=== PATIENT | female | born 1955 | race African-American/Black ===

== ENCOUNTER 2019-06-19 02:42 | Inpatient (IN) ==
[2019-06-19] MEDS ORDERED: ONDANSETRON 4 MG/2 ML VIAL IV STA (03:18)
[2019-06-19] MEDS ORDERED: KETOROLAC 30 MG/1 ML VIAL IV STA (03:18)
[2019-06-19] MEDS ORDERED: PIPERACILLIN/TAZOBACTAM 3,375 MG in SODIUM CHLORIDE 0.9% 100 ML IV STA (03:19)
[2019-06-19] MEDS ORDERED: HYDROmorphone 2 MG/1 ML VIAL IV STA (03:19)
[2019-06-19] MEDS ORDERED: SODIUM CHLORIDE 0.9% 1,000 ML IV SCH (03:30)
[2019-06-19 03:34] LABS: Basophils % 0.3 % (0.0-0.8); Eosinophils % 0.4 % (0.00-10.9); Hematocrit 33.8 VOL% (35.7-47.0); Hemoglobin 10.5 GM/DL (12.0-16.0); Immature Granulocytes % 0.1 %; Immature Granulocytes Absolute 0.01 #; Lymphocytes # 0.9 10*3/uL (1.4-4.0); Mean Corpuscular HGB Conc 31.1 GM/DL (32-36); Mean Corpuscular Volume 98.8 FL (87-102); Mean Platelet Volume 11.2 FL (9.6-12.0); Monocytes % 8.8 % (1.7-12.7); Neutrophils % 76.4 % (38.7-73.9); Platelet Count 221 T/CUMM (130-400); Red Blood Count 3.42 MC/CUMM (3.8-5.5); White Blood Count 6.7 T/CUMM (4-12)
[2019-06-19 04:22] LABS: Alanine Aminotransferase 16 U/L (13-56); Albumin 2.9 G/DL (3.4-5.0); Alkaline Phosphatase 110 U/L (45-117); Aspartate Amino Transferase 19 U/L (0-37); Bilirubin,Total < 0.39 MG/DL (0.2-1.0); Blood Urea Nitrogen 12 MG/DL (7-18); Calcium 9.8 MG/DL (8.5-10.1); Estimated Glom Filtration Rate 94 ML/MIN; Glucose 108 MG/DL (74-106); Osmolality,Calculated 275.7 MOS/KG (273-304); Total Protein 7.7 G/DL (6.4-8.3)
[2019-06-19] MEDS ORDERED: HYDROmorphone 2 MG/1 ML VIAL IV PRN (04:22)
[2019-06-19] MEDS ORDERED: GLUCAGON 1 MG VIAL IM PRN (04:22)
[2019-06-19] MEDS ORDERED: ACETAMINOPHEN 325 MG TABLET PO PRN (04:22)
[2019-06-19] MEDS ORDERED: DEXTROSE 50% 25 GM/50 ML SYRINGE IV PRN (04:22)
[2019-06-19] MEDS ORDERED: ONDANSETRON 4 MG/2 ML VIAL IV PRN (04:22)
[2019-06-19] MEDS ORDERED: INSULIN REGULAR 100 UNIT/ML SUBCUT SCH (06:00)
[2019-06-19] MEDS: ALBUTEROL/IPRATROPIUM 3 ML NEB RESP TX SCH ×3 (07:05→19:55)
[2019-06-19] MEDS: LINEZOLID INJ 600 MG in PREMIX 1 EACH IV SCH ×2 (09:28→20:56)
[2019-06-19] MEDS: PANTOPRAZOLE 40 MG TABLET PO SCH ×2 (09:29→09:35)
[2019-06-19] MEDS: INSULIN REGULAR 100 UNIT/ML SUBCUT SCH ×3 (11:51→20:45)
[2019-06-19] MEDS: PIPERACILLIN/TAZOBACTAM 3,375 MG in SODIUM CHLORIDE 0.9% 100 ML IV SCH ×2 (13:13→20:57)
[2019-06-19] MEDS: ATORVASTATIN 20 MG TABLET PO SCH (20:56)
[2019-06-19] MEDS: GABAPENTIN 300 MG CAPSULE PO SCH (20:56)
[2019-06-20] MEDS: ALBUTEROL/IPRATROPIUM 3 ML NEB RESP TX SCH ×4 (01:00→19:28)
[2019-06-20] MEDS: PIPERACILLIN/TAZOBACTAM 3,375 MG in SODIUM CHLORIDE 0.9% 100 ML IV SCH ×3 (05:17→23:45)
[2019-06-20 06:00] LABS: Basophils % 0.4 % (0.0-0.8); Eosinophils % 0.6 % (0.00-10.9); Hematocrit 27.5 VOL% (35.7-47.0); Hemoglobin 8.3 GM/DL (12.0-16.0); Immature Granulocytes % 0.2 %; Immature Granulocytes Absolute 0.01 #; Lymphocytes # 0.6 10*3/uL (1.4-4.0); Lymphocytes % 11.7 % (21.3-54.2); Mean Corpuscular HGB Conc 30.2 GM/DL (32-36); Mean Corpuscular Volume 98.9 FL (87-102); Mean Platelet Volume 10.5 FL (9.6-12.0); Monocytes % 11.9 % (1.7-12.7); Neutrophils % 75.2 % (38.7-73.9); Platelet Count 238 T/CUMM (130-400); Red Blood Count 2.78 MC/CUMM (3.8-5.5); Red Cell Distribution Width 14.9 % (9.3-17.3); White Blood Count 5.3 T/CUMM (4-12)
[2019-06-20 06:30] LABS: Alanine Aminotransferase 16 U/L (13-56); Albumin 2.8 G/DL (3.4-5.0); Alkaline Phosphatase 102 U/L (45-117); Aspartate Amino Transferase 17 U/L (0-37); Bilirubin,Total < 0.39 MG/DL (0.2-1.0); Blood Urea Nitrogen 10 MG/DL (7-18); Calcium 9.5 MG/DL (8.5-10.1); Estimated Glom Filtration Rate 77 ML/MIN; Glucose 119 MG/DL (74-106); Osmolality,Calculated 274.7 MOS/KG (273-304); Risk Ratio 1.73; Total Protein 7.3 G/DL (6.4-8.3); VLDL CHOLESTEROL 8.4 MG/DL
[2019-06-20] MEDS: INSULIN REGULAR 100 UNIT/ML SUBCUT SCH ×4 (07:54→21:15)
[2019-06-20] MEDS: LINEZOLID INJ 600 MG in PREMIX 1 EACH IV SCH ×2 (09:04→21:14)
[2019-06-20] MEDS: PANTOPRAZOLE 40 MG TABLET PO SCH (10:05)
[2019-06-20] MEDS: GABAPENTIN 300 MG CAPSULE PO SCH ×3 (10:05→21:15)
[2019-06-20] MEDS: ASPIRIN EC 81 MG TABLET PO SCH (10:05)
[2019-06-20] MEDS: cilostazoL 100 MG TABLET PO SCH (10:05)
[2019-06-20 11:40] LABS: Hematocrit 28.6 VOL% (35.7-47.0); Hemoglobin 8.5 GM/DL (12.0-16.0)
[2019-06-20 13:07] LABS: PT Patient Result 10.6 SECS (9.6-12.2)
[2019-06-20 20:49] LABS: Hematocrit 31.1 VOL% (35.7-47.0)
[2019-06-20] MEDS: ATORVASTATIN 20 MG TABLET PO SCH (21:15)
[2019-06-21] MEDS: ALBUTEROL/IPRATROPIUM 3 ML NEB RESP TX SCH ×4 (01:00→19:10)
[2019-06-21 05:29] LABS: Basophils % 0.7 % (0.0-0.8); Eosinophils # 0.1 10*3/uL (0.0-0.87); Eosinophils % 1.3 % (0.00-10.9); Hematocrit 27.2 VOL% (35.7-47.0); Hemoglobin 8.1 GM/DL (12.0-16.0); Immature Granulocytes % 0.4 %; Immature Granulocytes Absolute 0.02 #; Lymphocytes # 0.7 10*3/uL (1.4-4.0); Mean Corpuscular HGB Conc 29.8 GM/DL (32-36); Mean Corpuscular Volume 99.6 FL (87-102); Mean Platelet Volume 10.6 FL (9.6-12.0); Monocytes % 14.1 % (1.7-12.7); Neutrophils % 68.5 % (38.7-73.9); Platelet Count 248 T/CUMM (130-400); Red Blood Count 2.73 MC/CUMM (3.8-5.5); White Blood Count 4.5 T/CUMM (4-12)
[2019-06-21 07:28] LABS: Calcium 9.2 MG/DL (8.5-10.1); Osmolality,Calculated 278.4 MOS/KG (273-304)
[2019-06-21 08:04] LABS: Hematocrit 30.6 VOL% (35.7-47.0); Hemoglobin 9.1 GM/DL (12.0-16.0)
[2019-06-21] MEDS ORDERED: MIDAZOLAM 2 MG/2 ML VIAL IV ONE (08:16)
[2019-06-21] MEDS ORDERED: HEPARIN/NACL 0.9% 2 UNITS/ML 2,000 ML IV ONE (08:44)
[2019-06-21] MEDS: LINEZOLID INJ 600 MG in PREMIX 1 EACH IV SCH ×2 (08:50→20:54)
[2019-06-21] MEDS: PIPERACILLIN/TAZOBACTAM 3,375 MG in SODIUM CHLORIDE 0.9% 100 ML IV SCH ×2 (08:54→16:19)
[2019-06-21] MEDS: ASPIRIN EC 81 MG TABLET PO SCH (09:35)
[2019-06-21] MEDS: PANTOPRAZOLE 40 MG TABLET PO SCH (09:36)
[2019-06-21] MEDS: cilostazoL 100 MG TABLET PO SCH (09:36)
[2019-06-21] MEDS: GABAPENTIN 300 MG CAPSULE PO SCH ×3 (09:36→20:54)
[2019-06-21] MEDS ORDERED: MIDAZOLAM 2 MG/2 ML VIAL ONE (10:03)
[2019-06-21] MEDS ORDERED: HYDROmorphone 2 MG/1 ML VIAL ONE (10:03)
[2019-06-21] MEDS: ATORVASTATIN 20 MG TABLET PO SCH (20:54)
[2019-06-22] MEDS: PIPERACILLIN/TAZOBACTAM 3,375 MG in SODIUM CHLORIDE 0.9% 100 ML IV SCH ×3 (00:55→15:49)
[2019-06-22] MEDS: ALBUTEROL/IPRATROPIUM 3 ML NEB RESP TX SCH ×4 (01:10→19:25)
[2019-06-22] MEDS: INSULIN REGULAR 100 UNIT/ML SUBCUT SCH ×4 (04:52→16:57)
[2019-06-22 05:03] LABS: Basophils % 0.4 % (0.0-0.8); Eosinophils # 0.1 10*3/uL (0.0-0.87); Eosinophils % 1.2 % (0.00-10.9); Hematocrit 27.8 VOL% (35.7-47.0); Hemoglobin 8.3 GM/DL (12.0-16.0); Immature Granulocytes % 0.4 %; Immature Granulocytes Absolute 0.02 #; Lymphocytes # 0.7 10*3/uL (1.4-4.0); Lymphocytes % 15.1 % (21.3-54.2); Mean Corpuscular HGB Conc 29.9 GM/DL (32-36); Mean Corpuscular Volume 101.5 FL (87-102); Mean Platelet Volume 10.3 FL (9.6-12.0); Neutrophils % 70.9 % (38.7-73.9); Platelet Count 245 T/CUMM (130-400); Red Blood Count 2.74 MC/CUMM (3.8-5.5); Red Cell Distribution Width 15.1 % (9.3-17.3); White Blood Count 4.9 T/CUMM (4-12)
[2019-06-22 05:33] LABS: Calcium 9.5 MG/DL (8.5-10.1); Osmolality,Calculated 279.3 MOS/KG (273-304)
[2019-06-22] MEDS: LINEZOLID INJ 600 MG in PREMIX 1 EACH IV SCH ×2 (08:29→21:02)
[2019-06-22] MEDS: GABAPENTIN 300 MG CAPSULE PO SCH ×3 (08:31→21:02)
[2019-06-22] MEDS: cilostazoL 100 MG TABLET PO SCH (08:32)
[2019-06-22] MEDS: ASPIRIN EC 81 MG TABLET PO SCH (08:32)
[2019-06-22] MEDS: PANTOPRAZOLE 40 MG TABLET PO SCH (08:32)
[2019-06-22] MEDS: ATORVASTATIN 20 MG TABLET PO SCH (21:03)
[2019-06-23] MEDS: PIPERACILLIN/TAZOBACTAM 3,375 MG in SODIUM CHLORIDE 0.9% 100 ML IV SCH ×3 (01:07→15:32)
[2019-06-23] MEDS: ALBUTEROL/IPRATROPIUM 3 ML NEB RESP TX SCH ×4 (01:52→20:00)
[2019-06-23] MEDS: INSULIN REGULAR 100 UNIT/ML SUBCUT SCH ×4 (03:05→16:49)
[2019-06-23] MEDS: LINEZOLID INJ 600 MG in PREMIX 1 EACH IV SCH ×2 (08:19→20:19)
[2019-06-23] MEDS: PANTOPRAZOLE 40 MG TABLET PO SCH (08:20)
[2019-06-23] MEDS: cilostazoL 100 MG TABLET PO SCH (08:20)
[2019-06-23] MEDS: GABAPENTIN 300 MG CAPSULE PO SCH ×3 (08:20→20:16)
[2019-06-23] MEDS: ASPIRIN EC 81 MG TABLET PO SCH (08:20)
[2019-06-23] MEDS: ATORVASTATIN 20 MG TABLET PO SCH (20:16)
[2019-06-24] MEDS: ALBUTEROL/IPRATROPIUM 3 ML NEB RESP TX SCH ×4 (01:43→19:37)
[2019-06-24] MEDS: PIPERACILLIN/TAZOBACTAM 3,375 MG in SODIUM CHLORIDE 0.9% 100 ML IV SCH ×3 (03:13→23:44)
[2019-06-24] MEDS: INSULIN REGULAR 100 UNIT/ML SUBCUT SCH ×5 (04:04→20:42)
[2019-06-24] MEDS ORDERED: CLINDAMYCIN INJ 900 MG in PREMIX 1 EACH IV ONE (07:43)
[2019-06-24] MEDS: LINEZOLID INJ 600 MG in PREMIX 1 EACH IV SCH ×2 (09:20→21:21)
[2019-06-24] MEDS: ASPIRIN EC 81 MG TABLET PO SCH (10:30)
[2019-06-24] MEDS: GABAPENTIN 300 MG CAPSULE PO SCH ×3 (10:31→21:22)
[2019-06-24] MEDS: PANTOPRAZOLE 40 MG TABLET PO SCH (10:32)
[2019-06-24] MEDS: cilostazoL 100 MG TABLET PO SCH (10:32)
[2019-06-24] MEDS ORDERED: cloNIDine 0.1 MG TABLET PO PRN (12:35)
[2019-06-24] MEDS ORDERED: LACTATED RINGERS 1,000 ML IV SCH (13:30)
[2019-06-24] MEDS ORDERED: SEVOFLURANE 1 UNIT/15 MINUTE INH ONE (14:25)
[2019-06-24] MEDS ORDERED: LIDOCAINE 2% 5 ML VIAL ONE (14:25)
[2019-06-24] MEDS ORDERED: propofoL 200 MG/20 ML VIAL IV ONE (14:25)
[2019-06-24] MEDS ORDERED: PHENYLEPHRINE 1 MG/10 ML SYRINGE IV ONE (14:26)
[2019-06-24] MEDS ORDERED: fentaNYL 100 MCG/2 ML VIAL ONE (14:26)
[2019-06-24] MEDS ORDERED: MIDAZOLAM 2 MG/2 ML VIAL ONE (14:26)
[2019-06-24] MEDS ORDERED: ONDANSETRON 4 MG/2 ML VIAL ONE ×2 (14:26→14:33)
[2019-06-24] MEDS ORDERED: HYDROmorphone 2 MG/1 ML VIAL ONE (14:33)
[2019-06-24] MEDS ORDERED: ONDANSETRON 4 MG/2 ML VIAL IV PRN (14:37)
[2019-06-24] MEDS ORDERED: HYDROmorphone 2 MG/1 ML VIAL IV PRN (14:37)
[2019-06-24] MEDS: ATORVASTATIN 20 MG TABLET PO SCH (21:22)
[2019-06-25] MEDS: ALBUTEROL/IPRATROPIUM 3 ML NEB RESP TX SCH ×4 (00:21→20:13)
[2019-06-25] MEDS: PIPERACILLIN/TAZOBACTAM 3,375 MG in SODIUM CHLORIDE 0.9% 100 ML IV SCH ×3 (06:14→22:05)
[2019-06-25] MEDS: KETOROLAC 15 MG/1 ML VIAL IV SCH ×3 (08:19→19:59)
[2019-06-25] MEDS: HYDROmorphone 2 MG/1 ML VIAL IV SCH ×2 (08:20→09:55)
[2019-06-25] MEDS: INSULIN REGULAR 100 UNIT/ML SUBCUT SCH ×4 (08:21→21:20)
[2019-06-25] MEDS: cilostazoL 100 MG TABLET PO SCH (08:21)
[2019-06-25] MEDS: GABAPENTIN 300 MG CAPSULE PO SCH ×3 (08:21→19:59)
[2019-06-25] MEDS: ASPIRIN EC 81 MG TABLET PO SCH (08:21)
[2019-06-25] MEDS: PANTOPRAZOLE 40 MG TABLET PO SCH (08:21)
[2019-06-25] MEDS: LINEZOLID INJ 600 MG in PREMIX 1 EACH IV SCH ×2 (08:22→19:46)
[2019-06-25] MEDS ORDERED: HYDROmorphone 2 MG/1 ML VIAL IV PRN (09:54)
[2019-06-25] MEDS: ATORVASTATIN 20 MG TABLET PO SCH (19:59)
[2019-06-26] MEDS: ALBUTEROL/IPRATROPIUM 3 ML NEB RESP TX SCH ×4 (00:49→19:38)
[2019-06-26] MEDS: KETOROLAC 15 MG/1 ML VIAL IV SCH ×4 (02:35→21:00)
[2019-06-26] MEDS: PIPERACILLIN/TAZOBACTAM 3,375 MG in SODIUM CHLORIDE 0.9% 100 ML IV SCH (06:25)
[2019-06-26] MEDS: LINEZOLID INJ 600 MG in PREMIX 1 EACH IV SCH (08:17)
[2019-06-26] MEDS: PANTOPRAZOLE 40 MG TABLET PO SCH (08:18)
[2019-06-26] MEDS: GABAPENTIN 300 MG CAPSULE PO SCH ×3 (08:18→21:01)
[2019-06-26] MEDS: ASPIRIN EC 81 MG TABLET PO SCH (08:18)
[2019-06-26] MEDS: cilostazoL 100 MG TABLET PO SCH (08:18)
[2019-06-26] MEDS: INSULIN REGULAR 100 UNIT/ML SUBCUT SCH ×4 (08:44→21:00)
[2019-06-26] MEDS: LEVOFLOXACIN 500 MG TABLET PO SCH (10:39)
[2019-06-26 11:51] LABS: Hematocrit 26.9 VOL% (35.7-47.0)
[2019-06-26] MEDS ORDERED: METOPROLOL TARTRATE 5 MG/5 ML VIAL IV ONE (12:51)
[2019-06-26] MEDS ORDERED: SODIUM CHLORIDE 0.9% 1,000 ML IV SCH (14:00)
[2019-06-26] MEDS: CLINDAMYCIN 300 MG CAPSULE PO SCH ×2 (14:02→19:01)
[2019-06-26] MEDS ORDERED: SILVER NITRATE STICK 1 EACH TOP ONE (14:05)
[2019-06-26] MEDS ORDERED: METOPROLOL TARTRATE 25 MG TABLET PO SCH (21:00)
[2019-06-26] MEDS: ATORVASTATIN 20 MG TABLET PO SCH (21:01)
[2019-06-27] MEDS: ALBUTEROL/IPRATROPIUM 3 ML NEB RESP TX SCH ×2 (00:33→07:22)
[2019-06-27] MEDS: CLINDAMYCIN 300 MG CAPSULE PO SCH ×3 (00:47→11:48)
[2019-06-27] MEDS: KETOROLAC 15 MG/1 ML VIAL IV SCH ×2 (00:48→07:34)
[2019-06-27] MEDS: LEVOFLOXACIN 500 MG TABLET PO SCH (08:55)
[2019-06-27] MEDS: cilostazoL 100 MG TABLET PO SCH (08:55)
[2019-06-27] MEDS: ASPIRIN EC 81 MG TABLET PO SCH (08:56)
[2019-06-27] MEDS: GABAPENTIN 300 MG CAPSULE PO SCH (08:56)
[2019-06-27] MEDS: PANTOPRAZOLE 40 MG TABLET PO SCH (08:56)
[2019-06-27] MEDS ORDERED: METOPROLOL TARTRATE 25 MG TABLET PO SCH (09:00)
[2019-06-27] MEDS: INSULIN REGULAR 100 UNIT/ML SUBCUT SCH ×2 (09:01→11:50)
[2019-06-27 11:32] VITALS: BP 119/80
== END 2019-06-27 12:30 | DRG 239 ==
LOC: N.EDINP 02:42 → N.ED 02:42 → N.3E 03:46
PROVIDERS: ADMIT Surgery; ATTEND Surgery

== ENCOUNTER 2019-07-19 19:27 | Inpatient (IN) ==
[2019-07-19] MEDS ORDERED: SODIUM CHLORIDE 0.9% 1,000 ML IV STA (20:07)
[2019-07-19] MEDS ORDERED: ACETAMINOPHEN 500 MG TABLET PO STA (20:09)
[2019-07-19 20:37] LABS: Basophils # 0.1 10*3/uL (0.0-0.2); Basophils % 0.9 % (0.0-0.8); Eosinophils % 0.3 % (0.00-10.9); Hematocrit 37.5 VOL% (35.7-47.0); Hemoglobin 11.2 GM/DL (12.0-16.0); Immature Granulocytes % 1.8 %; Immature Granulocytes Absolute 0.19 #; Lymphocytes # 0.8 10*3/uL (1.4-4.0); Lymphocytes % 7.2 % (21.3-54.2); Mean Corpuscular HGB Conc 29.9 GM/DL (32-36); Mean Corpuscular Volume 98.9 FL (87-102); Mean Platelet Volume 11.1 FL (9.6-12.0); Neutrophils % 69.8 % (38.7-73.9); Platelet Count 189 T/CUMM (130-400); Red Blood Count 3.79 MC/CUMM (3.8-5.5); Red Cell Distribution Width 16.3 % (9.3-17.3); White Blood Count 10.5 T/CUMM (4-12)
[2019-07-19] MEDS ORDERED: PIPERACILLIN/TAZOBACTAM 3,375 MG in SODIUM CHLORIDE 0.9% 100 ML IV STA (20:40)
[2019-07-19 20:47] LABS: INR 1.1; PT Patient Result 11.9 SECS (9.8-11.9)
[2019-07-19 20:58] LABS: Alanine Aminotransferase 16 U/L (13-56); Albumin 2.2 G/DL (3.4-5.0); Alkaline Phosphatase 104 U/L (45-117); Aspartate Amino Transferase 14 U/L (0-37); Bilirubin,Total < 0.39 MG/DL (0.2-1.0); Blood Urea Nitrogen 34 MG/DL (7-18); Calcium 8.2 MG/DL (8.5-10.1); Estimated Glom Filtration Rate 37 ML/MIN; Glucose 169 MG/DL (74-106); Osmolality,Calculated 284.8 MOS/KG (273-304); Total Protein 5.2 G/DL (6.4-8.3)
[2019-07-19 21:27] LABS: Amorphous Crystals,Urine Occasional /HPF (Few); Apearance,Urine CLOUDY (Clear); Bacteria,Urine Occasional /HPF (Few); Bilirubin,Urine Negative (Negative); Blood, Urine Negative (Negative); Glucose,Urine (UA) Negative (Negative); Hyaline Casts,Urine 28 /LPF (0-3); Ketones,Urine 5 mg/dL (Negative); Nitrite,Urine Negative (Negative); Protein,Urine Negative; Squamous Epithelial Cell,Urine Occasional /HPF (0-10); Urine Color Amber (Yellow); Urine Specific Gravity 1.021 (1.001-1.035); Urine Urobilinogen < 2.0 EU/DL (0.2-1.0); WBC,Urine 1 /HPF (0-6)
[2019-07-19 22:31] LABS: Band Neutrophils 5 % (0-10); Eosinophils 1 % (0-10); Lymphocytes 13 % (20-55); Macrocytosis 1+; Metamyelocytes 1 %; Platelet Estimate Normal; Segmented Neutrophils 61 % (50-85); Total Cells Counted 100
[2019-07-19 22:32] LABS: Burr Cells 2+; Poikilocytosis 2+; Polychromasia Few; Reactive Lymphocytes 1+
[2019-07-20] MEDS ORDERED: NOREPINEPHRINE 8 MG in SODIUM CHLORIDE 0.9% 242 ML IV PRN (00:57)
[2019-07-20] MEDS ORDERED: POTASSIUM CHLORIDE RIDER 10 MEQ in PREMIX 1 EACH IV PRN (00:57)
[2019-07-20] MEDS ORDERED: ONDANSETRON 4 MG/2 ML VIAL IV PRN (00:57)
[2019-07-20] MEDS ORDERED: ALBUTEROL 2.5 MG/3 ML NEB RESP TX PRN (00:57)
[2019-07-20] MEDS ORDERED: MAGNESIUM SULF RIDER 4 GM in PREMIX 1 EACH IV PRN (00:57)
[2019-07-20] MEDS ORDERED: LEVOFLOXACIN INJ 750 MG in PREMIX 1 EACH IV SCH (01:00)
[2019-07-20] MEDS: SODIUM CHLORIDE 0.9% 1,000 ML IV SCH ×3 (01:57→21:56)
[2019-07-20] MEDS ORDERED: PIPERACILLIN/TAZOBACTAM 3,375 MG in SODIUM CHLORIDE 0.9% 100 ML IV SCH (05:00)
[2019-07-20 05:15] LABS: Basophils % 0.2 % (0.0-0.8); Eosinophils % 0.2 % (0.00-10.9); Hematocrit 37.9 VOL% (35.7-47.0); Immature Granulocytes % 1.8 %; Immature Granulocytes Absolute 0.21 #; Lymphocytes # 0.6 10*3/uL (1.4-4.0); Lymphocytes % 5.4 % (21.3-54.2); Mean Corpuscular HGB Conc 29.6 GM/DL (32-36); Mean Platelet Volume 11.4 FL (9.6-12.0); Monocytes % 8.3 % (1.7-12.7); Neutrophils % 84.1 % (38.7-73.9); Platelet Count 167 T/CUMM (130-400); Red Blood Count 3.83 MC/CUMM (3.8-5.5); Red Cell Distribution Width 16.6 % (9.3-17.3); White Blood Count 11.4 T/CUMM (4-12)
[2019-07-20 05:37] LABS: Osmolality,Calculated 283.4 MOS/KG (273-304)
[2019-07-20] MEDS: ACETAMINOPHEN 325 MG TABLET PO PRN ×2 (05:54→20:40)
[2019-07-20 06:05] LABS: Hemoglobin 11.3 GM/DL (12.0-16.0)
[2019-07-20] MEDS: MAGNESIUM SULF RIDER 2 GM in PREMIX 1 EACH IV PRN ×2 (06:06→14:30)
[2019-07-20] MEDS: FERROUS SULFATE 325 MG TABLET PO SCH (08:12)
[2019-07-20] MEDS: ASPIRIN EC 81 MG TABLET PO SCH (08:12)
[2019-07-20] MEDS: GABAPENTIN 300 MG CAPSULE PO SCH ×3 (08:12→21:54)
[2019-07-20] MEDS: cilostazoL 100 MG TABLET PO SCH (08:12)
[2019-07-20 08:51] LABS: Band Neutrophils 12 % (0-10); Lymphocytes 2 % (20-55); Metamyelocytes 2 %; Platelet Estimate Adequate; Polychromasia Slight; Segmented Neutrophils 62 % (50-85); Total Cells Counted 100
[2019-07-20] MEDS: metroNIDAZOLE INJ 500 MG in PREMIX 1 EACH IV SCH ×3 (09:15→20:30)
[2019-07-20] MEDS: VANCOMYCIN 50 MG/ML 60 ML/BOTTLE PO SCH ×2 (12:05→17:53)
[2019-07-20] MEDS: ceFAZolin 1,000 MG in SYRINGE 1 EACH IV SCH ×2 (12:05→17:52)
[2019-07-20] MEDS: CHOLESTYRAMINE 4 GM PACK PO SCH ×2 (15:02→21:55)
[2019-07-20] MEDS: ATORVASTATIN 20 MG TABLET PO SCH (21:54)
[2019-07-21] MEDS: VANCOMYCIN 50 MG/ML 60 ML/BOTTLE PO SCH ×4 (01:02→18:01)
[2019-07-21] MEDS: ceFAZolin 1,000 MG in SYRINGE 1 EACH IV SCH ×3 (02:59→18:01)
[2019-07-21] MEDS: metroNIDAZOLE INJ 500 MG in PREMIX 1 EACH IV SCH ×4 (03:22→21:00)
[2019-07-21 04:16] LABS: Basophils % 0.1 % (0.0-0.8); Hematocrit 35.8 VOL% (35.7-47.0); Hemoglobin 11.2 GM/DL (12.0-16.0); Immature Granulocytes % 4.4 %; Immature Granulocytes Absolute 1.04 #; Lymphocytes # 0.5 10*3/uL (1.4-4.0); Mean Corpuscular HGB Conc 31.3 GM/DL (32-36); Mean Corpuscular Volume 95.2 FL (87-102); Mean Platelet Volume 11.7 FL (9.6-12.0); Monocytes % 5.2 % (1.7-12.7); Neutrophils % 88.3 % (38.7-73.9); Platelet Count 195 T/CUMM (130-400); Red Blood Count 3.76 MC/CUMM (3.8-5.5); Red Cell Distribution Width 16.4 % (9.3-17.3); White Blood Count 23.5 T/CUMM (4-12)
[2019-07-21 04:36] LABS: Calcium 8.2 MG/DL (8.5-10.1); Osmolality,Calculated 286.5 MOS/KG (273-304)
[2019-07-21] MEDS: ACETAMINOPHEN 325 MG TABLET PO PRN (06:09)
[2019-07-21 07:55] LABS: Band Neutrophils 22 % (0-10); Burr Cells Few; Lymphocytes 4 % (20-55); Metamyelocytes 1 %; Platelet Estimate Adequate; Polychromasia Slight; Segmented Neutrophils 66 % (50-85); Total Cells Counted 100
[2019-07-21] MEDS: GABAPENTIN 300 MG CAPSULE PO SCH ×3 (08:16→21:01)
[2019-07-21] MEDS: ASPIRIN EC 81 MG TABLET PO SCH (08:16)
[2019-07-21] MEDS: FERROUS SULFATE 325 MG TABLET PO SCH (08:16)
[2019-07-21] MEDS: CHOLESTYRAMINE 4 GM PACK PO SCH (08:16)
[2019-07-21] MEDS: cilostazoL 100 MG TABLET PO SCH (08:16)
[2019-07-21] MEDS: SODIUM CHLORIDE 0.9% 1,000 ML IV SCH ×3 (16:25→17:15)
[2019-07-21] MEDS: ATORVASTATIN 20 MG TABLET PO SCH (21:00)
[2019-07-22] MEDS: VANCOMYCIN 50 MG/ML 60 ML/BOTTLE PO SCH ×5 (00:50→23:30)
[2019-07-22] MEDS: ceFAZolin 1,000 MG in SYRINGE 1 EACH IV SCH ×2 (02:54→11:55)
[2019-07-22] MEDS: metroNIDAZOLE INJ 500 MG in PREMIX 1 EACH IV SCH ×4 (02:54→21:41)
[2019-07-22 05:46] LABS: Basophils # 0.1 10*3/uL (0.0-0.2); Basophils % 0.5 % (0.0-0.8); Hematocrit 35.9 VOL% (35.7-47.0); Hemoglobin 11.4 GM/DL (12.0-16.0); Immature Granulocytes % 3.6 %; Immature Granulocytes Absolute 0.84 #; Lymphocytes # 0.5 10*3/uL (1.4-4.0); Lymphocytes % 2.1 % (21.3-54.2); Mean Corpuscular HGB Conc 31.8 GM/DL (32-36); Mean Corpuscular Volume 92.8 FL (87-102); Mean Platelet Volume 11.1 FL (9.6-12.0); NRBC # 0.02 10*3/uL; Neutrophils % 89.8 % (38.7-73.9); Platelet Count 157 T/CUMM (130-400); Red Blood Count 3.87 MC/CUMM (3.8-5.5); Red Cell Distribution Width 16.6 % (9.3-17.3); White Blood Count 23.5 T/CUMM (4-12)
[2019-07-22 06:04] LABS: Calcium 7.9 MG/DL (8.5-10.1); Osmolality,Calculated 283.5 MOS/KG (273-304)
[2019-07-22 06:16] LABS: Band Neutrophils 4 % (0-10); Lymphocytes 2 % (20-55); Segmented Neutrophils 92 % (50-85); Total Cells Counted 100
[2019-07-22 06:17] LABS: Acanthocytes Few; Burr Cells 1+; Hypochromasia 1+; Target Cells Slight
[2019-07-22 06:18] LABS: Anisocytosis 1+; Microcytosis 1+; Ovalocytes Slight; Platelet Estimate Adequate
[2019-07-22] MEDS: SODIUM CHLORIDE 0.9% 1,000 ML IV SCH ×2 (07:30→20:50)
[2019-07-22] MEDS: ASPIRIN EC 81 MG TABLET PO SCH (09:48)
[2019-07-22] MEDS: FERROUS SULFATE 325 MG TABLET PO SCH (09:48)
[2019-07-22] MEDS: cilostazoL 100 MG TABLET PO SCH (09:49)
[2019-07-22] MEDS: GABAPENTIN 300 MG CAPSULE PO SCH ×3 (09:49→20:11)
[2019-07-22] MEDS: CHOLESTYRAMINE 4 GM PACK PO SCH (09:50)
[2019-07-22] MEDS: ACETAMINOPHEN 325 MG TABLET PO PRN ×2 (11:56→23:30)
[2019-07-22] MEDS: ATORVASTATIN 20 MG TABLET PO SCH (20:11)
[2019-07-23] MEDS: metroNIDAZOLE INJ 500 MG in PREMIX 1 EACH IV SCH ×2 (02:40→09:35)
[2019-07-23] MEDS: VANCOMYCIN 50 MG/ML 60 ML/BOTTLE PO SCH ×2 (06:00→12:18)
[2019-07-23 06:13] LABS: Basophils # 0.1 10*3/uL (0.0-0.2); Basophils % 0.3 % (0.0-0.8); Hematocrit 39.2 VOL% (35.7-47.0); Hemoglobin 12.1 GM/DL (12.0-16.0); Immature Granulocytes % 2.5 %; Immature Granulocytes Absolute 0.48 #; Lymphocytes # 0.5 10*3/uL (1.4-4.0); Lymphocytes % 2.5 % (21.3-54.2); Mean Corpuscular HGB Conc 30.9 GM/DL (32-36); Mean Corpuscular Volume 95.6 FL (87-102); Mean Platelet Volume 11.4 FL (9.6-12.0); Monocytes % 3.9 % (1.7-12.7); Neutrophils % 90.8 % (38.7-73.9); Platelet Count 167 T/CUMM (130-400); Red Cell Distribution Width 16.9 % (9.3-17.3)
[2019-07-23 06:36] LABS: Band Neutrophils 1 % (0-10); Lymphocytes 1 % (20-55); Platelet Estimate Adequate; Segmented Neutrophils 97 % (50-85); Total Cells Counted 100
[2019-07-23 06:37] LABS: Burr Cells Slight; Hypochromasia Slight; Microcytosis 1+; Ovalocytes Slight
[2019-07-23] MEDS: ASPIRIN EC 81 MG TABLET PO SCH (09:35)
[2019-07-23] MEDS: FERROUS SULFATE 325 MG TABLET PO SCH (09:35)
[2019-07-23] MEDS: GABAPENTIN 300 MG CAPSULE PO SCH (09:36)
[2019-07-23] MEDS: cilostazoL 100 MG TABLET PO SCH (09:36)
[2019-07-23] MEDS: ACETAMINOPHEN 325 MG TABLET PO PRN (09:36)
[2019-07-23] MEDS: CHOLESTYRAMINE 4 GM PACK PO SCH (09:36)
[2019-07-23 12:11] VITALS: BP 132/78
== END 2019-07-23 13:00 | disposition home or self-care (01) | DRG 871 ==
LOC: EDUNIT# → EDBD → N.ED 19:27 → SUATTDRO 22:34 → N.EDINP 22:34 → N.ICU 23:16 → N.2E 07-21 14:36
PROVIDERS: ADMIT Internal Medicine; ATTEND Internal Medicine

== ENCOUNTER 2019-07-31 15:02 | Inpatient (IN) ==
[2019-07-31] MEDS ORDERED: PROMETHAZINE 25 MG/1 ML VIAL IM PRN (15:58)
[2019-07-31] MEDS ORDERED: ACETAMINOPHEN 325 MG TABLET PO PRN (15:58)
[2019-07-31 17:08] LABS: Basophils % 0.3 % (0.0-0.8); Eosinophils % 0.2 % (0.00-10.9); Hematocrit 37.4 VOL% (35.7-47.0); Hemoglobin 11.2 GM/DL (12.0-16.0); Immature Granulocytes % 1.1 %; Immature Granulocytes Absolute 0.07 #; Lymphocytes # 0.9 10*3/uL (1.4-4.0); Lymphocytes % 13.9 % (21.3-54.2); Mean Corpuscular HGB Conc 29.9 GM/DL (32-36); Mean Corpuscular Volume 97.1 FL (87-102); Monocytes % 13.2 % (1.7-12.7); Neutrophils % 71.3 % (38.7-73.9); Platelet Count 170 T/CUMM (130-400); Red Blood Count 3.85 MC/CUMM (3.8-5.5); Red Cell Distribution Width 17.9 % (9.3-17.3); White Blood Count 6.3 T/CUMM (4-12)
[2019-07-31 17:24] LABS: Osmolality,Calculated 272.7 MOS/KG (273-304)
[2019-07-31] MEDS: PANTOPRAZOLE 40 MG TABLET PO SCH (17:36)
[2019-07-31] MEDS: PIPERACILLIN/TAZOBACTAM 3,375 MG in SODIUM CHLORIDE 0.9% 100 ML IV SCH (17:37)
[2019-07-31 17:48] LABS: Band Neutrophils 9 % (0-10); Eosinophils 1 % (0-10); Hypochromasia Slight; Lymphocytes 12 % (20-55); Nucleated Red Blood Cells 1 (0-5); Platelet Estimate Normal; Segmented Neutrophils 68 % (50-85); Total Cells Counted 100
[2019-07-31] MEDS: LACTATED RINGERS 1,000 ML IV SCH (23:00)
[2019-07-31] MEDS: VANCOMYCIN INJ 750 MG in SODIUM CHLORIDE 0.9% 250 ML IV SCH (23:03)
[2019-08-01] MEDS: PIPERACILLIN/TAZOBACTAM 3,375 MG in SODIUM CHLORIDE 0.9% 100 ML IV SCH ×2 (02:17→15:31)
[2019-08-01 06:44] LABS: Basophils % 0.2 % (0.0-0.8); Eosinophils % 0.2 % (0.00-10.9); Hematocrit 33.4 VOL% (35.7-47.0); Hemoglobin 10.4 GM/DL (12.0-16.0); Immature Granulocytes % 0.5 %; Immature Granulocytes Absolute 0.03 #; Lymphocytes # 0.7 10*3/uL (1.4-4.0); Lymphocytes % 11.5 % (21.3-54.2); Mean Corpuscular HGB Conc 31.1 GM/DL (32-36); Mean Corpuscular Volume 94.6 FL (87-102); Mean Platelet Volume 11.3 FL (9.6-12.0); Monocytes % 16.3 % (1.7-12.7); Neutrophils % 71.3 % (38.7-73.9); Platelet Count 158 T/CUMM (130-400); Red Blood Count 3.53 MC/CUMM (3.8-5.5); Red Cell Distribution Width 17.8 % (9.3-17.3); White Blood Count 6.1 T/CUMM (4-12)
[2019-08-01 07:16] LABS: Osmolality,Calculated 275.5 MOS/KG (273-304)
[2019-08-01 08:11] LABS: Band Neutrophils 9 % (0-10); Hypochromasia Slight; Lymphocytes 11 % (20-55); Nucleated Red Blood Cells 1 (0-5); Segmented Neutrophils 70 % (50-85); Total Cells Counted 100
[2019-08-01 08:12] LABS: Acanthocytes Few; Burr Cells Slight; Microcytosis 1+; Target Cells Slight
[2019-08-01 08:13] LABS: Platelet Estimate Adequate
[2019-08-01] MEDS ORDERED: POTASSIUM CHLORIDE 20 MEQ TABLET PO ONE (09:03)
[2019-08-01] MEDS ORDERED: POTASSIUM CHLORIDE RIDER 10 MEQ in PREMIX 1 EACH IV PRN (09:03)
[2019-08-01] MEDS: VANCOMYCIN INJ 750 MG in SODIUM CHLORIDE 0.9% 250 ML IV SCH ×2 (09:04→21:11)
[2019-08-01] MEDS: HYDROmorphone 2 MG/1 ML VIAL IV PRN ×3 (09:05→21:42)
[2019-08-01] MEDS: PANTOPRAZOLE 40 MG TABLET PO SCH (09:07)
[2019-08-01] MEDS: ENOXAPARIN 40 MG/0.4 ML SYRINGE SUBCUT SCH (09:07)
[2019-08-01] MEDS ORDERED: BUPIVACAINE MPF 0.25% 30 ML VIAL ONE (10:36)
[2019-08-01] MEDS ORDERED: LIDOCAINE 1% 20 ML VIAL ONE (10:36)
[2019-08-01] MEDS ORDERED: SEVOFLURANE 1 UNIT/15 MINUTE INH ONE (11:49)
[2019-08-01] MEDS ORDERED: propofoL 200 MG/20 ML VIAL IV ONE (11:49)
[2019-08-01] MEDS ORDERED: LIDOCAINE 2% 5 ML VIAL ONE (11:49)
[2019-08-01] MEDS ORDERED: ONDANSETRON 4 MG/2 ML VIAL ONE (11:49)
[2019-08-01] MEDS ORDERED: MIDAZOLAM 2 MG/2 ML VIAL ONE (11:49)
[2019-08-01] MEDS ORDERED: fentaNYL 100 MCG/2 ML VIAL ONE (11:49)
[2019-08-01] MEDS ORDERED: PHENYLEPHRINE 1 MG/10 ML SYRINGE IV ONE (11:50)
[2019-08-01] MEDS: GABAPENTIN 300 MG CAPSULE PO SCH ×2 (15:31→21:11)
[2019-08-01] MEDS: VANCOMYCIN 50 MG/ML 60 ML/BOTTLE PO SCH (17:37)
[2019-08-01 19:06] LABS: Apearance,Urine CLOUDY (Clear); Bacteria,Urine Occasional /HPF (Few); Bilirubin,Urine Negative (Negative); Blood, Urine Small mg/dL (Negative); Calcium Oxalate Crystals,Urine Few /HPF (Few); Glucose,Urine (UA) Negative (Negative); Ketones,Urine Negative (Negative); Mucus,Urine Occasional /LPF (Occasional); Nitrite,Urine Negative (Negative); Protein,Urine Negative; RBC,Urine 4 /HPF (0-4); Squamous Epithelial Cell,Urine Occasional /HPF (0-10); Urine Color Yellow (Yellow); Urine Specific Gravity 1.009 (1.001-1.035); Urine Urobilinogen < 2.0 EU/DL (0.2-1.0); WBC,Urine 3 /HPF (0-6)
[2019-08-01] MEDS: METOPROLOL TARTRATE 25 MG TABLET PO SCH (21:11)
[2019-08-01] MEDS: MELOXICAM 7.5 MG TABLET PO SCH (21:11)
[2019-08-01] MEDS: ATORVASTATIN 20 MG TABLET PO SCH (21:11)
[2019-08-02] MEDS: VANCOMYCIN 50 MG/ML 60 ML/BOTTLE PO SCH ×4 (00:06→18:44)
[2019-08-02] MEDS: PIPERACILLIN/TAZOBACTAM 3,375 MG in SODIUM CHLORIDE 0.9% 100 ML IV SCH ×3 (00:06→16:50)
[2019-08-02] MEDS: LACTATED RINGERS 1,000 ML IV SCH ×5 (00:07→23:45)
[2019-08-02 08:13] LABS: Calcium 7.4 MG/DL (8.5-10.1); Osmolality,Calculated 279.1 MOS/KG (273-304)
[2019-08-02] MEDS: GABAPENTIN 300 MG CAPSULE PO SCH ×3 (10:02→21:12)
[2019-08-02] MEDS: PANTOPRAZOLE 40 MG TABLET PO SCH (10:02)
[2019-08-02] MEDS: ASPIRIN EC 81 MG TABLET PO SCH (10:02)
[2019-08-02] MEDS: MELOXICAM 7.5 MG TABLET PO SCH ×2 (10:02→21:12)
[2019-08-02] MEDS: ENOXAPARIN 40 MG/0.4 ML SYRINGE SUBCUT SCH (10:03)
[2019-08-02] MEDS: METOPROLOL TARTRATE 25 MG TABLET PO SCH ×2 (10:03→21:12)
[2019-08-02] MEDS: VANCOMYCIN INJ 750 MG in SODIUM CHLORIDE 0.9% 250 ML IV SCH ×2 (10:05→21:28)
[2019-08-02 11:08] LABS: Basophils % 0.5 % (0.0-0.8); Eosinophils % 0.2 % (0.00-10.9); Hematocrit 36.6 VOL% (35.7-47.0); Hemoglobin 11.1 GM/DL (12.0-16.0); Immature Granulocytes % 0.9 %; Immature Granulocytes Absolute 0.05 #; Lymphocytes # 0.6 10*3/uL (1.4-4.0); Mean Corpuscular HGB Conc 30.3 GM/DL (32-36); Mean Corpuscular Volume 95.8 FL (87-102); Mean Platelet Volume 11.4 FL (9.6-12.0); Monocytes % 14.9 % (1.7-12.7); Neutrophils % 72.5 % (38.7-73.9); Platelet Count 142 T/CUMM (130-400); Red Blood Count 3.82 MC/CUMM (3.8-5.5); Red Cell Distribution Width 17.9 % (9.3-17.3); White Blood Count 5.7 T/CUMM (4-12)
[2019-08-02] MEDS: HYDROmorphone 2 MG/1 ML VIAL IV PRN (11:37)
[2019-08-02] MEDS: MENTHOL/ZINC OXIDE OINT 71 GM JAR TOP SCH (13:00)
[2019-08-02 13:27] LABS: Band Neutrophils 10 % (0-10); Lymphocytes 14 % (20-55); Segmented Neutrophils 65 % (50-85); Smudge Cells Few; Total Cells Counted 100
[2019-08-02 13:28] LABS: Polychromasia Few
[2019-08-02 13:29] LABS: Platelet Estimate Adequate
[2019-08-02] MEDS: ATORVASTATIN 20 MG TABLET PO SCH (21:12)
[2019-08-03] MEDS: VANCOMYCIN 50 MG/ML 60 ML/BOTTLE PO SCH ×4 (00:09→17:13)
[2019-08-03] MEDS: PIPERACILLIN/TAZOBACTAM 3,375 MG in SODIUM CHLORIDE 0.9% 100 ML IV SCH ×3 (00:10→16:59)
[2019-08-03] MEDS: LACTATED RINGERS 1,000 ML IV SCH ×2 (09:34→16:59)
[2019-08-03] MEDS: PANTOPRAZOLE 40 MG TABLET PO SCH (09:35)
[2019-08-03] MEDS: METOPROLOL TARTRATE 25 MG TABLET PO SCH ×2 (09:35→21:06)
[2019-08-03] MEDS: MELOXICAM 7.5 MG TABLET PO SCH ×2 (09:35→21:06)
[2019-08-03] MEDS: ASPIRIN EC 81 MG TABLET PO SCH (09:35)
[2019-08-03] MEDS: MENTHOL/ZINC OXIDE OINT 71 GM JAR TOP SCH (09:36)
[2019-08-03] MEDS: VANCOMYCIN INJ 750 MG in SODIUM CHLORIDE 0.9% 250 ML IV SCH ×2 (09:36→21:05)
[2019-08-03] MEDS: GABAPENTIN 300 MG CAPSULE PO SCH ×3 (09:36→21:06)
[2019-08-03] MEDS: ENOXAPARIN 40 MG/0.4 ML SYRINGE SUBCUT SCH (09:36)
[2019-08-03] MEDS: ATORVASTATIN 20 MG TABLET PO SCH (21:06)
[2019-08-04] MEDS: VANCOMYCIN 50 MG/ML 60 ML/BOTTLE PO SCH ×4 (02:08→18:11)
[2019-08-04] MEDS: PIPERACILLIN/TAZOBACTAM 3,375 MG in SODIUM CHLORIDE 0.9% 100 ML IV SCH ×3 (02:09→16:59)
[2019-08-04] MEDS: LACTATED RINGERS 1,000 ML IV SCH ×2 (06:51→19:46)
[2019-08-04] MEDS: ASPIRIN EC 81 MG TABLET PO SCH (10:07)
[2019-08-04] MEDS: PANTOPRAZOLE 40 MG TABLET PO SCH (10:08)
[2019-08-04] MEDS: METOPROLOL TARTRATE 25 MG TABLET PO SCH ×2 (10:08→20:31)
[2019-08-04] MEDS: MELOXICAM 7.5 MG TABLET PO SCH ×2 (10:08→20:31)
[2019-08-04] MEDS: GABAPENTIN 300 MG CAPSULE PO SCH ×3 (10:08→20:31)
[2019-08-04] MEDS: VANCOMYCIN INJ 750 MG in SODIUM CHLORIDE 0.9% 250 ML IV SCH ×2 (10:09→20:38)
[2019-08-04] MEDS: MENTHOL/ZINC OXIDE OINT 71 GM JAR TOP SCH (10:09)
[2019-08-04] MEDS: ENOXAPARIN 40 MG/0.4 ML SYRINGE SUBCUT SCH (10:09)
[2019-08-04] MEDS: ATORVASTATIN 20 MG TABLET PO SCH (20:31)
[2019-08-05] MEDS: VANCOMYCIN 50 MG/ML 60 ML/BOTTLE PO SCH ×4 (00:10→17:42)
[2019-08-05] MEDS: PIPERACILLIN/TAZOBACTAM 3,375 MG in SODIUM CHLORIDE 0.9% 100 ML IV SCH ×3 (00:10→15:05)
[2019-08-05 06:28] LABS: Basophils % 0.2 % (0.0-0.8); Eosinophils % 0.6 % (0.00-10.9); Immature Granulocytes % 0.4 %; Immature Granulocytes Absolute 0.02 #; Lymphocytes # 0.7 10*3/uL (1.4-4.0); Lymphocytes % 13.8 % (21.3-54.2); Mean Corpuscular HGB Conc 30.3 GM/DL (32-36); Mean Corpuscular Volume 94.6 FL (87-102); Mean Platelet Volume 11.8 FL (9.6-12.0); Monocytes % 10.8 % (1.7-12.7); Neutrophils % 74.2 % (38.7-73.9); Platelet Count 123 T/CUMM (130-400); Red Blood Count 3.49 MC/CUMM (3.8-5.5); White Blood Count 5.3 T/CUMM (4-12)
[2019-08-05 06:50] LABS: Calcium 7.4 MG/DL (8.5-10.1); Osmolality,Calculated 285.8 MOS/KG (273-304)
[2019-08-05 07:00] LABS: Band Neutrophils 38 % (0-10); Eosinophils 1 % (0-10); Lymphocytes 14 % (20-55); Metamyelocytes 1 %; Nucleated Red Blood Cells 1 (0-5); Segmented Neutrophils 40 % (50-85); Total Cells Counted 100
[2019-08-05 07:01] LABS: Anisocytosis 2+; Burr Cells Few; Macrocytosis 1+; Platelet Estimate Adequate; Poikilocytosis 1+; Smudge Cells 1+
[2019-08-05] MEDS: MELOXICAM 7.5 MG TABLET PO SCH ×2 (08:40→21:22)
[2019-08-05] MEDS: GABAPENTIN 300 MG CAPSULE PO SCH ×3 (08:40→21:22)
[2019-08-05] MEDS: ASPIRIN EC 81 MG TABLET PO SCH (08:40)
[2019-08-05] MEDS: METOPROLOL TARTRATE 25 MG TABLET PO SCH ×2 (08:40→21:22)
[2019-08-05] MEDS: PANTOPRAZOLE 40 MG TABLET PO SCH (08:41)
[2019-08-05] MEDS: ENOXAPARIN 40 MG/0.4 ML SYRINGE SUBCUT SCH (08:41)
[2019-08-05] MEDS: MENTHOL/ZINC OXIDE OINT 71 GM JAR TOP SCH (10:30)
[2019-08-05] MEDS: VANCOMYCIN INJ 750 MG in SODIUM CHLORIDE 0.9% 250 ML IV SCH ×2 (13:00→21:22)
[2019-08-05] MEDS: ATORVASTATIN 20 MG TABLET PO SCH (21:22)
[2019-08-06] MEDS: PIPERACILLIN/TAZOBACTAM 3,375 MG in SODIUM CHLORIDE 0.9% 100 ML IV SCH ×3 (00:16→16:05)
[2019-08-06] MEDS: VANCOMYCIN 50 MG/ML 60 ML/BOTTLE PO SCH ×4 (00:17→18:39)
[2019-08-06 07:05] LABS: Basophils % 0.4 % (0.0-0.8); Eosinophils % 0.6 % (0.00-10.9); Hemoglobin 10.2 GM/DL (12.0-16.0); Immature Granulocytes % 0.8 %; Immature Granulocytes Absolute 0.04 #; Lymphocytes # 0.8 10*3/uL (1.4-4.0); Lymphocytes % 14.5 % (21.3-54.2); Mean Corpuscular Volume 95.5 FL (87-102); Mean Platelet Volume 11.7 FL (9.6-12.0); Monocytes % 10.3 % (1.7-12.7); Neutrophils % 73.4 % (38.7-73.9); Platelet Count 122 T/CUMM (130-400); Red Blood Count 3.56 MC/CUMM (3.8-5.5); Red Cell Distribution Width 17.8 % (9.3-17.3); White Blood Count 5.2 T/CUMM (4-12)
[2019-08-06 07:27] LABS: Band Neutrophils 2 % (0-10); Eosinophils 1 % (0-10); Hypochromasia 1+; Lymphocytes 16 % (20-55); Platelet Estimate Normal; Segmented Neutrophils 75 % (50-85); Total Cells Counted 100
[2019-08-06 07:28] LABS: Ovalocytes Slight
[2019-08-06 07:46] LABS: Calcium 7.4 MG/DL (8.5-10.1); Osmolality,Calculated 287.6 MOS/KG (273-304)
[2019-08-06] MEDS: MELOXICAM 7.5 MG TABLET PO SCH ×2 (09:26→22:19)
[2019-08-06] MEDS: GABAPENTIN 300 MG CAPSULE PO SCH ×3 (09:26→22:19)
[2019-08-06] MEDS: METOPROLOL TARTRATE 25 MG TABLET PO SCH ×2 (09:26→22:19)
[2019-08-06] MEDS: PANTOPRAZOLE 40 MG TABLET PO SCH (09:26)
[2019-08-06] MEDS: ASPIRIN EC 81 MG TABLET PO SCH (09:27)
[2019-08-06] MEDS: VANCOMYCIN INJ 750 MG in SODIUM CHLORIDE 0.9% 250 ML IV SCH ×2 (09:27→22:19)
[2019-08-06] MEDS: MENTHOL/ZINC OXIDE OINT 71 GM JAR TOP SCH (09:28)
[2019-08-06] MEDS: FLUTICASONE 50 MCG NASAL SPRAY 16 GM BOTTLE BOTH NARES PRN (12:40)
[2019-08-06] MEDS: ATORVASTATIN 20 MG TABLET PO SCH (22:19)
[2019-08-07] MEDS: VANCOMYCIN 50 MG/ML 60 ML/BOTTLE PO SCH ×5 (00:30→23:53)
[2019-08-07] MEDS: GABAPENTIN 300 MG CAPSULE PO SCH ×3 (09:20→22:17)
[2019-08-07] MEDS: ASPIRIN EC 81 MG TABLET PO SCH (09:20)
[2019-08-07] MEDS: PANTOPRAZOLE 40 MG TABLET PO SCH (09:20)
[2019-08-07] MEDS: METOPROLOL TARTRATE 25 MG TABLET PO SCH ×2 (09:20→22:17)
[2019-08-07] MEDS: MENTHOL/ZINC OXIDE OINT 71 GM JAR TOP SCH (09:20)
[2019-08-07] MEDS: MELOXICAM 7.5 MG TABLET PO SCH ×2 (09:20→22:17)
[2019-08-07] MEDS: VANCOMYCIN INJ 750 MG in SODIUM CHLORIDE 0.9% 250 ML IV SCH ×2 (09:47→22:18)
[2019-08-07] MEDS: PIPERACILLIN/TAZOBACTAM 3,375 MG in SODIUM CHLORIDE 0.9% 100 ML IV SCH ×3 (09:48→23:54)
[2019-08-07] MEDS: ATORVASTATIN 20 MG TABLET PO SCH (22:17)
[2019-08-08] MEDS: VANCOMYCIN 50 MG/ML 60 ML/BOTTLE PO SCH ×2 (06:40→12:50)
[2019-08-08] MEDS ORDERED: PIPERACILLIN/TAZOBACTAM 3,375 MG in SODIUM CHLORIDE 0.9% 100 ML IV SCH (07:30)
[2019-08-08] MEDS ORDERED: DEXAMETHASONE 4 MG/1 ML VIAL ONE (07:53)
[2019-08-08] MEDS ORDERED: LIDOCAINE 2% 5 ML VIAL ONE ×2 (07:53→10:15)
[2019-08-08] MEDS ORDERED: BUPIVACAINE MPF 0.5% /EPI 30 ML VIAL ONE (07:53)
[2019-08-08] MEDS: ASPIRIN EC 81 MG TABLET PO SCH (09:46)
[2019-08-08] MEDS: GABAPENTIN 300 MG CAPSULE PO SCH ×3 (09:46→21:43)
[2019-08-08] MEDS: MELOXICAM 7.5 MG TABLET PO SCH ×2 (09:46→21:43)
[2019-08-08] MEDS: METOPROLOL TARTRATE 25 MG TABLET PO SCH ×2 (09:46→21:43)
[2019-08-08] MEDS: MENTHOL/ZINC OXIDE OINT 71 GM JAR TOP SCH (09:46)
[2019-08-08] MEDS: PANTOPRAZOLE 40 MG TABLET PO SCH (09:48)
[2019-08-08] MEDS: VANCOMYCIN INJ 750 MG in SODIUM CHLORIDE 0.9% 250 ML IV SCH (09:50)
[2019-08-08] MEDS ORDERED: propofoL 200 MG/20 ML VIAL IV ONE (10:14)
[2019-08-08] MEDS ORDERED: fentaNYL 100 MCG/2 ML VIAL ONE (10:14)
[2019-08-08] MEDS ORDERED: SEVOFLURANE 1 UNIT/15 MINUTE INH ONE (10:15)
[2019-08-08] MEDS ORDERED: ONDANSETRON 4 MG/2 ML VIAL ONE (10:15)
[2019-08-08] MEDS ORDERED: MIDAZOLAM 2 MG/2 ML VIAL ONE (10:15)
[2019-08-08] MEDS ORDERED: PHENYLEPHRINE 1 MG/10 ML SYRINGE IV ONE (10:15)
[2019-08-08] MEDS: ATORVASTATIN 20 MG TABLET PO SCH (21:43)
[2019-08-09] MEDS: PANTOPRAZOLE 40 MG TABLET PO SCH (09:37)
[2019-08-09] MEDS: MELOXICAM 7.5 MG TABLET PO SCH ×2 (09:37→21:14)
[2019-08-09] MEDS: METOPROLOL TARTRATE 25 MG TABLET PO SCH ×2 (09:37→21:14)
[2019-08-09] MEDS: ASPIRIN EC 81 MG TABLET PO SCH (09:37)
[2019-08-09] MEDS: GABAPENTIN 300 MG CAPSULE PO SCH ×3 (09:37→21:14)
[2019-08-09] MEDS: MENTHOL/ZINC OXIDE OINT 71 GM JAR TOP SCH (09:38)
[2019-08-09] MEDS: ENOXAPARIN 40 MG/0.4 ML SYRINGE SUBCUT SCH (09:38)
[2019-08-09] MEDS: FLUTICASONE 50 MCG NASAL SPRAY 16 GM BOTTLE BOTH NARES PRN (10:50)
[2019-08-09] MEDS: ATORVASTATIN 20 MG TABLET PO SCH (21:14)
[2019-08-09] MEDS: MORPHINE 4 MG/1 ML VIAL IV PRN (22:29)
[2019-08-10] MEDS: MORPHINE 4 MG/1 ML VIAL IV PRN ×3 (05:36→14:26)
[2019-08-10] MEDS: PANTOPRAZOLE 40 MG TABLET PO SCH (08:50)
[2019-08-10] MEDS: METOPROLOL TARTRATE 25 MG TABLET PO SCH ×2 (08:50→20:18)
[2019-08-10] MEDS: GABAPENTIN 300 MG CAPSULE PO SCH ×3 (08:50→20:17)
[2019-08-10] MEDS: ASPIRIN EC 81 MG TABLET PO SCH (08:50)
[2019-08-10] MEDS: ENOXAPARIN 40 MG/0.4 ML SYRINGE SUBCUT SCH (08:51)
[2019-08-10] MEDS: MENTHOL/ZINC OXIDE OINT 71 GM JAR TOP SCH (08:51)
[2019-08-10] MEDS: MELOXICAM 7.5 MG TABLET PO SCH ×2 (08:51→20:17)
[2019-08-10] MEDS: ATORVASTATIN 20 MG TABLET PO SCH (20:18)
[2019-08-11] MEDS: MORPHINE 4 MG/1 ML VIAL IV PRN ×4 (00:12→20:09)
[2019-08-11] MEDS: ASPIRIN EC 81 MG TABLET PO SCH (08:56)
[2019-08-11] MEDS: ENOXAPARIN 40 MG/0.4 ML SYRINGE SUBCUT SCH (08:56)
[2019-08-11] MEDS: GABAPENTIN 300 MG CAPSULE PO SCH ×3 (08:56→20:07)
[2019-08-11] MEDS: METOPROLOL TARTRATE 25 MG TABLET PO SCH ×2 (08:56→20:09)
[2019-08-11] MEDS: PANTOPRAZOLE 40 MG TABLET PO SCH (08:56)
[2019-08-11] MEDS: MELOXICAM 7.5 MG TABLET PO SCH ×2 (08:56→20:07)
[2019-08-11] MEDS: MENTHOL/ZINC OXIDE OINT 71 GM JAR TOP SCH (08:57)
[2019-08-11] MEDS: ATORVASTATIN 20 MG TABLET PO SCH (20:08)
[2019-08-12] MEDS: MENTHOL/ZINC OXIDE OINT 71 GM JAR TOP SCH (09:38)
[2019-08-12] MEDS: PANTOPRAZOLE 40 MG TABLET PO SCH (09:39)
[2019-08-12] MEDS: GABAPENTIN 300 MG CAPSULE PO SCH ×3 (09:39→20:36)
[2019-08-12] MEDS: MELOXICAM 7.5 MG TABLET PO SCH ×2 (09:39→20:36)
[2019-08-12] MEDS: METOPROLOL TARTRATE 25 MG TABLET PO SCH ×2 (09:39→20:36)
[2019-08-12] MEDS: ASPIRIN EC 81 MG TABLET PO SCH (09:39)
[2019-08-12] MEDS: ENOXAPARIN 40 MG/0.4 ML SYRINGE SUBCUT SCH (09:40)
[2019-08-12] MEDS: ATORVASTATIN 20 MG TABLET PO SCH (20:36)
[2019-08-13] MEDS: GABAPENTIN 300 MG CAPSULE PO SCH ×3 (09:19→22:20)
[2019-08-13] MEDS: METOPROLOL TARTRATE 25 MG TABLET PO SCH ×2 (09:20→22:20)
[2019-08-13] MEDS: ASPIRIN EC 81 MG TABLET PO SCH (09:20)
[2019-08-13] MEDS: PANTOPRAZOLE 40 MG TABLET PO SCH (09:20)
[2019-08-13] MEDS: MELOXICAM 7.5 MG TABLET PO SCH ×2 (09:20→22:20)
[2019-08-13] MEDS: MENTHOL/ZINC OXIDE OINT 71 GM JAR TOP SCH (09:21)
[2019-08-13] MEDS: ENOXAPARIN 40 MG/0.4 ML SYRINGE SUBCUT SCH (09:21)
[2019-08-13] MEDS: ATORVASTATIN 20 MG TABLET PO SCH (22:20)
[2019-08-14] MEDS: PANTOPRAZOLE 40 MG TABLET PO SCH (09:15)
[2019-08-14] MEDS: METOPROLOL TARTRATE 25 MG TABLET PO SCH ×2 (09:15→21:18)
[2019-08-14] MEDS: ASPIRIN EC 81 MG TABLET PO SCH (09:15)
[2019-08-14] MEDS: ENOXAPARIN 40 MG/0.4 ML SYRINGE SUBCUT SCH (09:15)
[2019-08-14] MEDS: GABAPENTIN 300 MG CAPSULE PO SCH ×3 (09:15→21:17)
[2019-08-14] MEDS: MENTHOL/ZINC OXIDE OINT 71 GM JAR TOP SCH (09:16)
[2019-08-14] MEDS: MORPHINE 4 MG/1 ML VIAL IV PRN (09:24)
[2019-08-14] MEDS: MELOXICAM 7.5 MG TABLET PO SCH ×2 (09:26→21:17)
[2019-08-14] MEDS: ONDANSETRON 4 MG/2 ML VIAL IV PRN (17:34)
[2019-08-14] MEDS: ATORVASTATIN 20 MG TABLET PO SCH (21:18)
[2019-08-15] MEDS: MORPHINE 4 MG/1 ML VIAL IV PRN (05:51)
[2019-08-15] MEDS: MELOXICAM 7.5 MG TABLET PO SCH (08:48)
[2019-08-15] MEDS: PANTOPRAZOLE 40 MG TABLET PO SCH (08:48)
[2019-08-15] MEDS: ASPIRIN EC 81 MG TABLET PO SCH (08:48)
[2019-08-15] MEDS: GABAPENTIN 300 MG CAPSULE PO SCH (08:48)
[2019-08-15] MEDS: METOPROLOL TARTRATE 25 MG TABLET PO SCH (08:48)
[2019-08-15] MEDS: ENOXAPARIN 40 MG/0.4 ML SYRINGE SUBCUT SCH (08:48)
[2019-08-15] MEDS: MENTHOL/ZINC OXIDE OINT 71 GM JAR TOP SCH (08:49)
[2019-08-15 13:55] VITALS: BP 151/60
[2019-08-15] MEDS: ONDANSETRON 4 MG/2 ML VIAL IV PRN (14:03)
== END 2019-08-15 15:12 | DRG 240 ==
LOC: N.3E 15:15
PROVIDERS: ADMIT Surgery; ATTEND Surgery

== ENCOUNTER 2019-11-19 02:07 | Observation (INO) ==
[2019-11-19] MEDS ORDERED: ONDANSETRON 4 MG/2 ML VIAL IV STA (02:43)
[2019-11-19] MEDS ORDERED: ALBUTEROL/IPRATROPIUM 3 ML NEB RESP TX STA (02:43)
[2019-11-19] MEDS ORDERED: methylPREDNISolone SOD SUC 125 MG/2 ML VIAL IV STA (02:43)
[2019-11-19] MEDS ORDERED: cefTRIAXone 1,000 MG in SODIUM CHLORIDE 0.9% 100 ML IV STA (02:43)
[2019-11-19 03:14] LABS: Basophils % 0.6 % (0.0-0.8); Eosinophils # 0.1 10*3/uL (0.0-0.87); Eosinophils % 1.4 % (0.00-10.9); Hematocrit 33.3 VOL% (35.7-47.0); Hemoglobin 10.1 GM/DL (12.0-16.0); Immature Granulocytes % 0.3 %; Immature Granulocytes Absolute 0.01 #; Lymphocytes # 1.4 10*3/uL (1.4-4.0); Lymphocytes % 37.9 % (21.3-54.2); Mean Corpuscular HGB Conc 30.3 GM/DL (32-36); Mean Corpuscular Volume 102.5 FL (87-102); Monocytes % 9.7 % (1.7-12.7); Neutrophils % 50.1 % (38.7-73.9); Platelet Count 115 T/CUMM (130-400); Red Blood Count 3.25 MC/CUMM (3.8-5.5); Red Cell Distribution Width 14.9 % (9.3-17.3); White Blood Count 3.6 T/CUMM (4-12)
[2019-11-19 03:43] LABS: Albumin 3.2 G/DL (3.4-5.0); Bilirubin,Total 0.4 MG/DL (0.2-1.0); Calcium 8.5 MG/DL (8.5-10.1); Osmolality,Calculated 287.1 MOS/KG (273-304); Total Protein 6.8 G/DL (6.4-8.3)
[2019-11-19 03:47] LABS: INR 1.2; PT Patient Result 12.5 SECS (9.8-11.9)
[2019-11-19 04:15] LABS: Burr Cells Slight; Hypochromasia 1+; Ovalocytes Slight
[2019-11-19] MEDS ORDERED: ONDANSETRON 4 MG/2 ML VIAL IV PRN (05:22)
[2019-11-19] MEDS ORDERED: GLUCAGON 1 MG VIAL IM PRN ×2 (05:22→10:30)
[2019-11-19] MEDS ORDERED: ACETAMINOPHEN 325 MG TABLET PO PRN (05:22)
[2019-11-19] MEDS ORDERED: DEXTROSE 50% 25 GM/50 ML VIAL IV PRN ×2 (05:22→10:30)
[2019-11-19] MEDS ORDERED: AZITHROMYCIN INJ 500 MG in SODIUM CHLORIDE 0.9% 250 ML IV SCH (06:00)
[2019-11-19] MEDS: ALBUTEROL/IPRATROPIUM 3 ML NEB RESP TX SCH ×3 (07:40→19:40)
[2019-11-19 08:39] LABS: Lymphocytes,Pleural Fluid 80 %; Monocytes,Pleural Fluid 3 %; Neutrophils,Pleural Fluid 17 %
[2019-11-19 08:43] LABS: RBC,Pleural Fluid 5252 T/CUMM
[2019-11-19 08:58] LABS: Total Protein,Body Fluid 3.3 G/DL
[2019-11-19] MEDS: PANTOPRAZOLE 40 MG TABLET PO SCH (11:16)
[2019-11-19] MEDS: AZITHROMYCIN INJ 500 MG in SODIUM CHLORIDE 0.9% 250 ML IV SCH (11:16)
[2019-11-19] MEDS: INSULIN REGULAR 100 UNIT/ML SUBCUT SCH ×2 (16:54→20:45)
[2019-11-19] MEDS ORDERED: INSULIN REGULAR 100 UNIT/ML SUBCUT SCH (21:00)
[2019-11-20] MEDS: ALBUTEROL/IPRATROPIUM 3 ML NEB RESP TX SCH ×2 (00:20→07:18)
[2019-11-20] MEDS ORDERED: cefTRIAXone 1,000 MG in SODIUM CHLORIDE 0.9% 100 ML IV SCH (05:30)
[2019-11-20 06:05] LABS: Basophils % 0.2 % (0.0-0.8); Eosinophils % 0.2 % (0.00-10.9); Hematocrit 34.2 VOL% (35.7-47.0); Hemoglobin 10.6 GM/DL (12.0-16.0); Immature Granulocytes % 0.3 %; Immature Granulocytes Absolute 0.02 #; Lymphocytes # 1.3 10*3/uL (1.4-4.0); Lymphocytes % 19.5 % (21.3-54.2); Monocytes % 11.7 % (1.7-12.7); Neutrophils % 68.1 % (38.7-73.9); Platelet Count 125 T/CUMM (130-400); Red Blood Count 3.42 MC/CUMM (3.8-5.5); White Blood Count 6.4 T/CUMM (4-12)
[2019-11-20 06:39] LABS: Albumin 2.9 G/DL (3.4-5.0); Bilirubin,Total 0.5 MG/DL (0.2-1.0); Calcium 8.9 MG/DL (8.5-10.1); Osmolality,Calculated 287.1 MOS/KG (273-304); Total Protein 6.3 G/DL (6.4-8.3)
[2019-11-20] MEDS: INSULIN REGULAR 100 UNIT/ML SUBCUT SCH ×2 (09:26→11:57)
[2019-11-20] MEDS: PANTOPRAZOLE 40 MG TABLET PO SCH (09:31)
[2019-11-20] MEDS: AZITHROMYCIN INJ 500 MG in SODIUM CHLORIDE 0.9% 250 ML IV SCH (09:32)
[2019-11-20 11:28] VITALS: BP 115/53
[2019-11-21] MEDS ORDERED: AZITHROMYCIN 250 MG TABLET PO SCH (09:00)
== END 2019-11-20 12:30 | disposition home health service (06) ==
LOC: SUATTDRO → EDBD → EDUNIT# → N.ED 02:07 → N.EDINP 02:07 → N.4E 07:29
PROVIDERS: ADMIT Internal Medicine; ATTEND Internal Medicine

== ENCOUNTER 2021-04-22 10:18 | Inpatient (IN) ==
[2021-04-22] MEDS ORDERED: ONDANSETRON 4 MG/2 ML VIAL IV STA (12:53)
[2021-04-22] MEDS ORDERED: MORPHINE 2 MG/1 ML SYRINGE IM STA (12:54)
[2021-04-22 12:56] LABS: Basophils % 0.4 % (0.0-0.8); Eosinophils # 0.1 10*3/uL (0.0-0.87); Eosinophils % 0.9 % (0.00-10.9); Hematocrit 32.3 VOL% (35.7-47.0); Hemoglobin 10.1 GM/DL (12.0-16.0); Immature Granulocytes % 0.4 %; Immature Granulocytes Absolute 0.02 #; Lymphocytes # 1.3 10*3/uL (1.4-4.0); Lymphocytes % 22.3 % (21.3-54.2); Mean Corpuscular HGB Conc 31.3 GM/DL (32-36); Mean Corpuscular Volume 100.3 FL (87-102); Mean Platelet Volume 10.5 FL (9.6-12.0); Monocytes % 10.2 % (1.7-12.7); Neutrophils % 65.8 % (38.7-73.9); Platelet Count 218 T/CUMM (130-400); Red Blood Count 3.22 MC/CUMM (3.8-5.5); Red Cell Distribution Width 14.4 % (9.3-17.3); White Blood Count 5.7 T/CUMM (4-12)
[2021-04-22] MEDS ORDERED: MORPHINE 2 MG/1 ML SYRINGE IV STA (13:04)
[2021-04-22 13:16] LABS: Albumin 3.2 G/DL (3.4-5.0); Bilirubin,Total 0.4 MG/DL (0.20-1.00); Calcium 9.2 MG/DL (8.5-10.1); Potassium 3.9 MMOL/L (3.5-5.1); Total Protein 7.3 G/DL (6.4-8.2)
[2021-04-22] MEDS ORDERED: hydrALAZINE 20 MG/1 ML VIAL IV PRN (14:27)
[2021-04-22] MEDS ORDERED: ACETAMINOPHEN 325 MG TABLET PO PRN (14:27)
[2021-04-22] MEDS ORDERED: GLUCAGON 1 MG VIAL IM PRN (14:27)
[2021-04-22] MEDS ORDERED: ONDANSETRON 4 MG/2 ML VIAL IV PRN (14:27)
[2021-04-22] MEDS ORDERED: DEXTROSE 10% 250 ML BAG IV PRN (14:27)
[2021-04-22 15:14] LABS: Thyroid Stimulating Hormone 0.873 uIU/ml (0.358-3.74)
[2021-04-22 15:32] LABS: Risk Ratio 2.04
[2021-04-22] MEDS: INSULIN LISPRO 100 UNIT/ML SUBCUT SCH (17:29)
[2021-04-22] MEDS ORDERED: INFLUENZA VIRUS VACCINE 0.5 ML SYRINGE IM ONE (17:40)
[2021-04-22] MEDS: DOCUSATE SODIUM 100 MG CAPSULE PO SCH (21:54)
[2021-04-22] MEDS: ATORVASTATIN 40 MG TABLET PO SCH (21:54)
[2021-04-23] MEDS: INSULIN LISPRO 100 UNIT/ML SUBCUT SCH ×4 (01:16→19:01)
[2021-04-23 06:22] LABS: Basophils % 0.4 % (0.0-0.8); Eosinophils # 0.1 10*3/uL (0.0-0.87); Hematocrit 28.3 VOL% (35.7-47.0); Immature Granulocytes % 0.2 %; Immature Granulocytes Absolute 0.01 #; Lymphocytes # 1.1 10*3/uL (1.4-4.0); Lymphocytes % 21.6 % (21.3-54.2); Mean Corpuscular HGB Conc 31.8 GM/DL (32-36); Mean Corpuscular Volume 100.7 FL (87-102); Mean Platelet Volume 10.8 FL (9.6-12.0); Monocytes % 11.5 % (1.7-12.7); Neutrophils % 65.3 % (38.7-73.9); Platelet Count 212 T/CUMM (130-400); Red Blood Count 2.81 MC/CUMM (3.8-5.5); Red Cell Distribution Width 14.6 % (9.3-17.3); White Blood Count 4.9 T/CUMM (4-12)
[2021-04-23 06:36] LABS: Osmolality,Calculated 280.4 MOS/KG (273-304); Potassium 3.8 MMOL/L (3.5-5.1)
[2021-04-23] MEDS: MORPHINE 2 MG/1 ML SYRINGE IV PRN (08:54)
[2021-04-23] MEDS: ASPIRIN CHEW 81 MG TABLET PO SCH (10:56)
[2021-04-23] MEDS: PANTOPRAZOLE 40 MG TABLET PO SCH (11:01)
[2021-04-23] MEDS: DOCUSATE SODIUM 100 MG CAPSULE PO SCH ×3 (11:01→21:50)
[2021-04-23] MEDS: ATORVASTATIN 40 MG TABLET PO SCH (21:46)
[2021-04-24] MEDS: INSULIN LISPRO 100 UNIT/ML SUBCUT SCH ×5 (01:53→23:49)
[2021-04-24 06:00] LABS: Basophils % 0.7 % (0.0-0.8); Eosinophils # 0.1 10*3/uL (0.0-0.87); Eosinophils % 1.5 % (0.00-10.9); Hematocrit 30.9 VOL% (35.7-47.0); Hemoglobin 9.5 GM/DL (12.0-16.0); Immature Granulocytes % 0.2 %; Immature Granulocytes Absolute 0.01 #; Lymphocytes % 23.6 % (21.3-54.2); Mean Corpuscular HGB Conc 30.7 GM/DL (32-36); Mean Corpuscular Volume 101.3 FL (87-102); Monocytes % 12.8 % (1.7-12.7); Neutrophils % 61.2 % (38.7-73.9); Platelet Count 162 T/CUMM (130-400); Red Blood Count 3.05 MC/CUMM (3.8-5.5); Red Cell Distribution Width 14.6 % (9.3-17.3); White Blood Count 4.1 T/CUMM (4-12)
[2021-04-24 06:18] LABS: Calcium 8.9 MG/DL (8.5-10.1); Osmolality,Calculated 285.1 MOS/KG (273-304); Potassium 3.9 MMOL/L (3.5-5.1)
[2021-04-24] MEDS: PANTOPRAZOLE 40 MG TABLET PO SCH (09:27)
[2021-04-24] MEDS: DOCUSATE SODIUM 100 MG CAPSULE PO SCH ×2 (09:27→21:04)
[2021-04-24] MEDS: ASPIRIN CHEW 81 MG TABLET PO SCH (09:27)
[2021-04-24] MEDS: ATORVASTATIN 40 MG TABLET PO SCH (21:04)
[2021-04-25] MEDS: MORPHINE 2 MG/1 ML SYRINGE IV PRN (00:14)
[2021-04-25 05:11] LABS: Basophils % 0.5 % (0.0-0.8); Eosinophils # 0.1 10*3/uL (0.0-0.87); Eosinophils % 1.9 % (0.00-10.9); Hematocrit 31.5 VOL% (35.7-47.0); Hemoglobin 9.7 GM/DL (12.0-16.0); Immature Granulocytes % 0.5 %; Immature Granulocytes Absolute 0.02 #; Lymphocytes # 1.1 10*3/uL (1.4-4.0); Lymphocytes % 25.4 % (21.3-54.2); Mean Corpuscular HGB Conc 30.8 GM/DL (32-36); Mean Platelet Volume 10.4 FL (9.6-12.0); Monocytes % 12.2 % (1.7-12.7); Neutrophils % 59.5 % (38.7-73.9); Platelet Count 246 T/CUMM (130-400); Red Blood Count 3.15 MC/CUMM (3.8-5.5); Red Cell Distribution Width 14.6 % (9.3-17.3); White Blood Count 4.3 T/CUMM (4-12)
[2021-04-25 05:25] LABS: Calcium 9.3 MG/DL (8.5-10.1); Potassium 3.8 MMOL/L (3.5-5.1)
[2021-04-25] MEDS: INSULIN LISPRO 100 UNIT/ML SUBCUT SCH ×3 (06:19→18:44)
[2021-04-25] MEDS: DOCUSATE SODIUM 100 MG CAPSULE PO SCH ×2 (08:07→20:40)
[2021-04-25] MEDS: ASPIRIN CHEW 81 MG TABLET PO SCH (08:08)
[2021-04-25] MEDS: PANTOPRAZOLE 40 MG TABLET PO SCH (08:08)
[2021-04-25] MEDS ORDERED: cefTRIAXone 1,000 MG in SODIUM CHLORIDE 0.9% 100 ML IV SCH (09:00)
[2021-04-25] MEDS ORDERED: AZITHROMYCIN INJ 500 MG in SODIUM CHLORIDE 0.9% 250 ML IV SCH (09:00)
[2021-04-25] MEDS ORDERED: ALBUTEROL 2.5 MG/3 ML NEB RESP TX PRN (12:40)
[2021-04-25] MEDS ORDERED: BISACODYL 10 MG SUPP RECTAL ONE (12:53)
[2021-04-25] MEDS: ALBUTEROL/IPRATROPIUM 3 ML NEB RESP TX SCH ×3 (14:10→23:22)
[2021-04-25] MEDS: LEVOFLOXACIN 500 MG TABLET PO SCH (14:31)
[2021-04-25] MEDS: POLYETHYLENE GLYCOL POWDER 17 GM PACK PO SCH (14:33)
[2021-04-25] MEDS: ATORVASTATIN 40 MG TABLET PO SCH (20:41)
[2021-04-26] MEDS: INSULIN LISPRO 100 UNIT/ML SUBCUT SCH ×3 (00:36→14:33)
[2021-04-26] MEDS: ALBUTEROL/IPRATROPIUM 3 ML NEB RESP TX SCH ×3 (02:33→11:05)
[2021-04-26] MEDS ORDERED: LEVOFLOXACIN 500 MG TABLET PO SCH (09:00)
[2021-04-26] MEDS: PANTOPRAZOLE 40 MG TABLET PO SCH (09:45)
[2021-04-26] MEDS: ASPIRIN CHEW 81 MG TABLET PO SCH (09:45)
[2021-04-26] MEDS: LEVOFLOXACIN 500 MG TABLET PO SCH (09:45)
[2021-04-26] MEDS: POLYETHYLENE GLYCOL POWDER 17 GM PACK PO SCH (09:45)
[2021-04-26] MEDS: DOCUSATE SODIUM 100 MG CAPSULE PO SCH (09:45)
[2021-04-26 11:21] VITALS: BP 134/57
== END 2021-04-26 14:02 | DRG 535 ==
LOC: N.ED 10:18 → SUATTDRO 14:26 → N.3E 14:26
PROVIDERS: ADMIT Internal Medicine; ATTEND Hospitalist